=== PATIENT | male | born 1990 | race Caucasian/White ===

== ENCOUNTER 2020-08-10 11:04 | Emergency (ER) | payer OTHER ==
[~2020-08-10 11:04] MED LIST: ATARAX25 MG PO; BACTRIM DS TAB1 EACH PO; DOXYCYCLINE HY100 MG PO; MEDROL 4MG DOSEP4 MG PO; PREDNISONE20 MG PO; PROZAC20 M1 PO; ZYPREXA5 MG PO
[2020-08-10] MEDS ORDERED: ATARAX25 MG PO (11:29)
[2020-08-10] MEDS ORDERED: MEDROL 4MG DOSEP4 MG PO (11:29)
== END 2020-08-10 11:30 | disposition home or self-care (01) ==
LOC: FER 11:04
DX: L30.9 Dermatitis, unspecified (principal); F17.200 Nicotine dependence, unspecified, uncomplicated; Z88.0 Allergy status to penicillin
CPT/HCPCS: 99282

== ENCOUNTER 2021-10-22 22:30 | Emergency (ER) | payer SELFPAY ==
[2021-10-23 00:55] LABS: BASOPHIL 0.4 % (0-2); EOSINOPHIL 0.5 % (0-5); HCT 41.3 % (42.0-52.0); HGB 13.5 g/dl (13.2-18.0); LYMPHOCYTE 15.8 % (15-48); MCH 29.1 pg (25.0-31.0); MCHC 32.7 g/dL (32.0-36.0); MONOCYTE 4.6 % (0-12); MPV 11.3 fL (6.0-9.5); NEUTROPHIL 78.4 % (41-80); NRBC 0; PLT 198 K/uL (150-400); RBC 4.64 M/uL (4.70-6.00); RDW 13.2 % (11.5-14.0); WBC 10.5 K/uL (4.0-10.5)
[2021-10-23 01:20] LABS: ALBUMIN 3.5 g/dL (3.4-5.0); BILIRUBIN - TOTAL 0.3 mg/dL (0.2-1.0); BUN/CREAT RATIO (CALC) 24.3 RATIO; CREATININE 0.7 mg/dL (0.67-1.17); GLOBULIN (CALCULATION) 2.7 g/dL; POTASSIUM 4.7 mmol/L (3.5-5.1); TOTAL PROTEIN 6.2 g/dL (6.4-8.2)
== END 2021-10-23 02:25 | disposition home or self-care (01) ==
LOC: FER 22:30
PROVIDERS: Emergency Medicine
DX: R11.2 Nausea with vomiting, unspecified (principal); F17.200 Nicotine dependence, unspecified, uncomplicated
CPT/HCPCS: 36415; 80053; 85025; 99284